=== PATIENT | female | born 1935 | race Caucasian/White ===

== ENCOUNTER 2016-05-18 09:35 | Outpatient (CLI) | payer OTHER ==
[~2016-05-18 09:35] MED LIST: ALDACTONE25 MG PO; AMARYL1 MG PO; ASPIRIN ENTERIC81 M1 PO; LOSARTAN POTASS25 MG PO; METFORMIN HCL500 MG PO; MULTIVITAMIN1 TAB PO; PROVENTIL HFA
--- NOTE | 2016-05-18 10:27 | DIAGNOSTIC IMAGING REPORT ---
PROCEDURE: US ABDOMEN ULTRASOUND-COMPLETE INDICATION: CIRRHOSIS OF LIVER TECHNIQUE: Villanueva scale and color Doppler sonographic images of the abdomen were obtained without comparison. COMPARISON: Abdominal ultrasound 11/25/2015 FINDINGS: Liver measures 13 cm with scalloped borders coarse echo structure. No evidence of a focal hepatic mass . There are small right and left upper quadrant ascites. Enlarged spleen measures 17.1 x 6.3 cm (previously 17 x 7.3 cm) Normal hepatopetal flow. Pancreas normal as visualized. Normal gallbladder and CBD 5.7 mm). Aorta and IVC are patent. Normal kidneys. Right kidney measures 13 cm and left kidney 11.2 cm. IMPRESSION: 1. Cirrhosis with small ascites 2. Stable splenomegaly with normal hepatopetal flow
== END 2016-05-18 23:00 ==
LOC: US SRH 09:35
DX: K74.60 Unspecified cirrhosis of liver (principal); R18.8 Other ascites
CPT/HCPCS: 90008; 90074; 90100; 93005; 95059